=== PATIENT | female | born 1980 ===

== ENCOUNTER 2017-11-14 09:26 | Inpatient (IN) | payer BC ==
[2017-11-14] MEDS: DEXTROSE 5%-LACTATED RINGERS 1,000 ML IV SCH (11:15)
[2017-11-14] MEDS ORDERED: OXYTOCIN 20 UNITS in 0.9% NS 20 UNIT/1,000 ML INFUS.BAG IV ONE ×2 (11:34→12:45)
[2017-11-14] MEDS: SODIUM CHLORIDE 1,000 ML with OXYTOCIN 20 UNIT IV SCH (11:35)
[2017-11-14 12:14] VITALS: BMI 28.9
[2017-11-14] MEDS ORDERED: BISACODYL 10 MG SUPP.RECT RC PRN (12:34)
[2017-11-14] MEDS ORDERED: BENZOCAINE 20% 57 GM BOTTLE TP PRN (12:34)
[2017-11-14] MEDS ORDERED: BENZOCAINE 28 GM HEMORRHOIDAL OINTMENT TP PRN (12:34)
[2017-11-14] MEDS ORDERED: WITCH HAZEL 50% (TUCKS) 40 PAD/JAR PAD TP PRN (12:34)
[2017-11-14] MEDS ORDERED: METHYLERGONOVINE MALEATE 0.2 MG/1 ML AMP IM PRN (12:34)
[2017-11-14] MEDS ORDERED: oxyCODONE HCL 5 MG TABLET PO PRN (12:34)
--- NOTE | 2017-11-14 12:34 | HP ---
Past Medical History - Admission History of Present Illness: 37 yo @ complicated by: 1. 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 GBS positive urine 04/2017 denies penicillin allergies 3. MRSA 2011 Patient presents with chief complaint of contractions. She reports movement, denies leakage of fluid or vaginal bleeding. Limitations to Obtaining History: No Limitations - Past Medical History Cardiovascular: No: HTN Pulmonary: No: Asthma ...: 12 ...Para: 1 ...Term: 1 ...: 0 ...Spon : 1 ...Induced : 9 ...Multiple Gestation: 0 ...LMP: 02/06/17 ... Weeks Gestation by Dates: 40.3 ...EDC by Dates: 11/11/17 Heme/Onc: No: Anemia - Past Surgical History Past Surgical History: No: None Hx Myomectomy: No Hx Transabdominal Cerclage: No - Smoking History Smoking history: Never smoked Have you smoked in the past 12 months: No - Alcohol/Substance Use Hx Alcohol Use: No Family Disease History - Family Disease History Family History: Denies Review of Systems - Review of Systems Constitutional: reports: No Symptoms Cardiovascular: reports: No Symptoms Respiratory: reports: No Symptoms Gastrointestinal: reports: No Symptoms Genitourinary: reports: No Symptoms Neurological: reports: No Symptoms Endocrine: reports: No Symptoms Hematology/Lymphatic: reports: No Symptoms Psychiatric: reports: No Symptoms Physical Exam - Maternity Vital Signs: Vital Signs Temperature 98.1 F 11/14/17 11:15 Pulse Rate 77 11/14/17 11:15 Respiratory Rate 18 11/14/17 11:15 Blood Pressure 124/92 11/14/17 11:15 O2 Sat by Pulse Oximetry (%) Constitutional: Yes: Well Nourished, No Distress, Calm Cardiovascular: Yes: Regular Rate and Rhythm Lungs: Clear to auscultation - Abdominal Exam/OB Fundal Height: 40 Number of Fetuses: Single Presentation: Vertex Category: I Accelerations: Non-Uniform Decelerations: None - Vaginal Exam/OB Vaginal Bleediing: No - Physical Exam Psychiatric: Yes: Alert, Oriented - Labs Lab Results: PNL - B positive, antibody negative, RPR NR; HBS Ag negative; HCV negative; HIV negative x 2; GCT WNL; Hg Noemi WNL; Parvo Non immune; Rubella Immune, Varicella Immune; GBS positive on Urine Cx Hemorrhage Risk Assessment - Risk Factors Medium Risk Factors: Yes: None High Risk Factors: Yes: None Risk Score: 1 Risk Level: Medium Risk Assessment/Plan 37 yo in active labor 1. Consents reviewed and signed 2. Routine labs collected and sent 3. GBS positive - unable to give antibiotics prior to labor 4. category I FHT
--- NOTE | 2017-11-14 12:38 | PN ---
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 Head delivered spontaneously nuchal cord and shoulders and body delivered through without difficulty. Infant with spontaneous cry and placed on mother's abdomen. Nose and mouth was bulb suctioned. Cord was clamped and cut. Perineum and vagina examined, no lacerations noted. Placenta was delivered spontaneously and intact. 20 units of pitocin in 1 L IVF was given. All counts correct x 2. Mother and stable in LDR. EBL 300cc.
[2017-11-14] MEDS: ACETAMINOPHEN 325 MG TABLET (FP) PO PRN ×3 (12:39→23:49)
[2017-11-14] MEDS: IBUPROFEN 600 MG TABLET (FP) PO PRN ×3 (12:40→23:46)
[2017-11-14] MEDS ORDERED: TUBERCULIN PPD 5 TU/0.1ML SYRINGE (IN PATIENT USE ONLY) ID ONE (14:30)
[2017-11-14] MEDS: FERROUS SO4 325 MG TABLET (FP) PO SCH (18:27)
[2017-11-15 09:05] LABS: BASO % 0.6 % (0-2.0); EOS % 0.8 % (0-4.5); HEMATOCRIT 34.6 % (32.4-45.2); HEMOGLOBIN 11.9 GM/dL (10.7-15.3); LYMPH % 16.3 % (8-40); MCH 31.5 pg (25.7-33.7); MCHC 34.4 g/dl (32.0-36.0); MEAN CELL VOLUME 91.4 fl (80-96); MEAN PLT VOLUME 9.1 fl (7.5-11.1); MONO % 7.4 % (3.8-10.2); NEUT % 74.9 % (42.8-82.8); PLATELET COUNT 157 K/MM3 (134-434); RBC 3.78 M/mm3 (3.60-5.2); RDW 13.8 % (11.6-15.6); WHITE BLOOD COUNT 9.9 K/mm3 (4.0-10.0)
--- NOTE | 2017-11-15 09:41 | PN ---
Post Progress Note - Subjective Subjective: Patient without acute complaints. Reports tolerating oral intake without nausea or vomiting. Ambulating without dizziness. Denies fevers or chills. Pain well controlled with oral pain medication. without difficulty. Passing flatus. Post Day: 1 Type of Delivery: Vital Signs: Vital Signs Temperature 97.8 F 11/15/17 09:17 Pulse Rate 84 11/15/17 09:17 Respiratory Rate 17 11/15/17 09:17 Blood Pressure 110/62 11/15/17 09:17 O2 Sat by Pulse Oximetry (%) 100 11/14/17 12:40 Breast Exam: Yes: Soft Uterus: Yes: Fundus Firm Abdomen/GI: Yes: Abdomen soft, Passing flatus, Tolerating PO. No: Abdominal Distention, Tender Lochia: Yes: Serosa Lochia, amount: Small Extremities: Yes: Calves non-tender Perineum: Yes: Intact Activity: Ambulating - Labs Labs: CBC WBC 9.9 K/mm3 (4.0-10.0) 11/15/17 06:00 RBC 3.78 M/mm3 (3.60-5.2) 11/15/17 06:00 Hgb 11.9 GM/dL (10.7-15.3) 11/15/17 06:00 Hct 34.6 % (32.4-45.2) 11/15/17 06:00 MCV 91.4 fl (80-96) 11/15/17 06:00 MCH 31.5 pg (25.7-33.7) 11/15/17 06:00 MCHC 34.4 g/dl (32.0-36.0) 11/15/17 06:00 RDW 13.8 % (11.6-15.6) 11/15/17 06:00 Plt Count 157 K/MM3 (134-434) 11/15/17 06:00 MPV 9.1 fl (7.5-11.1) 11/15/17 06:00 Absolute Neuts (auto) 7.4 # 11/15/17 06:00 Neutrophils % 74.9 % (42.8-82.8) 11/15/17 06:00 Lymphocytes % 16.3 % (8-40) 11/15/17 06:00 Monocytes % 7.4 % (3.8-10.2) 11/15/17 06:00 Eosinophils % 0.8 % (0-4.5) 11/15/17 06:00 Basophils % 0.6 % (0-2.0) 11/15/17 06:00 Nucleated RBC % 0 % (0-0) 11/15/17 06:00 Assessment/Plan 37 yo PPD # 1 s/p , afebrile, vital signs stable, doing we 1. Continue routine care. 2. AM CBC without anemia. 3. Rh positive status, no rhogam indicated. 4. Encourage ambulation 5. Continue oral pain medication 6. Anticipate discharge home day #2
--- NOTE | 2017-11-15 09:55 | DS ---
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 Vital Signs: Vital Signs Temperature 97.8 F 11/15/17 09:17 Pulse Rate 84 11/15/17 09:17 Respiratory Rate 17 11/15/17 09:17 Blood Pressure 110/62 11/15/17 09:17 O2 Sat by Pulse Oximetry (%) 100 11/14/17 12:40 Labs: CBC, BMP 11/15/17 06:00 Delivery - Delivery Vaginal Delivery: No Problems Type of Anesthesia: None Episiotomy/Laceration: None EBL (cc): 300 Delivery, Single - Stages of Labor Date 1st Stage Initiatied: 11/14/17 Time 1st Stage Initiated: 07:20 Date 2nd Stage Initiated: 11/14/17 Time 2nd Stage Initiated: 11:15 Date of Delivery: 11/14/17 Time of Delivery: 11:32 Time Placenta Delivered: 11:35 Placenta: Yes: Expressed - Condition of Inspector Casing/Plant Sciences Professor Present: No Gender: Female Weight: 6 lb 13 oz Position: Left, OA Total Hours ROM (Hrs/Mins): 2min - 1 Minute Total Score: 9 5 Minutes Total Score: 9 - [place] Feeding Plan Initial Plan: Elected not to breastfeed exclusively throughout hospitalization Discharge Summary Reason For Visit: LABOR Current Active Problems Vaginal delivery (Acute) Procedures: Principal: vaginal delivery Hospital Course: Patient was admitted in active labor, progressed to deliver via a viable female . PPD # 1 patient ambulated, voiding, passing gas, tolerating oral intake and with adequate pain control. Noted to have mild asymptomatic anemia She fulfilled all criteria for discharge PPD #2 Condition: Good - Instructions Diet, Activity, Other Instructions: Physical activity Resume your normal everyday activity as tolerated no heavy lifting or exercise until seen by your surgeon. You may walk unlimited killian of and climb stairs. You may resume driving the car when you feel safe and comfortable behind the wheel. No sexual activity as instructed. Diet There are no dietary restrictions. Eat healthy, high-fiber foods. Drink 6 to 8 glasses of liquid each day. This will assist in keeping your bowels are regular. Pain management You may take Tylenol or acetaminophen or Ibuprofen (for example, Motrin, Advil etc.) from my pain prescription medication is ordered should be taken as prescribed for moderate to severe pain. Call MD for any of the following: Severe pain not relieved by medication Fever of 101 or higher Excessive bleeding or drainage on dressing Inability to urinate Referrals: Marcie Veras MD [Staff Physician] - Disposition: HOME - Home Medications Comprehensive Discharge Medication List: Ambulatory Orders One Tablet 1 tablet PO DAILY 11/14/17 Valtrex 1 tab PO DAILY 11/14/17
[2017-11-15] MEDS: PRENATAL VITAMINS W/ FOLIC ACID TABLET (FP) PO SCH (10:18)
[2017-11-15] MEDS: FERROUS SO4 325 MG TABLET (FP) PO SCH ×3 (10:19→17:23)
[2017-11-15] MEDS: DEXTROSE 5%-LACTATED RINGERS 1,000 ML IV SCH (14:20)
[2017-11-15] MEDS: SODIUM CHLORIDE 1,000 ML with OXYTOCIN 20 UNIT IV SCH (14:20)
[2017-11-15] MEDS: IBUPROFEN 600 MG TABLET (FP) PO PRN (20:53)
[2017-11-15] MEDS: ACETAMINOPHEN 325 MG TABLET (FP) PO PRN (20:53)
[2017-11-15 21:12] LABS: INR 1.01 (0.82-1.09); PROTHROMBIN TIME (PATIENT) 11.4 SEC (9.7-13.0)
[2017-11-15 21:15] LABS: ACTIVATED PTT 27.8 SECONDS (26.9-34.4)
[2017-11-15 21:18] LABS: ANION GAP 8 (8-16); BLOOD UREA NITROGEN 10 mg/dL (7-18); CALCIUM 8.5 mg/dL (8.5-10.1); CHLORIDE 107 mmol/L (98-107); CO2 25 mmol/L (21-32); CREATININE 0.9 mg/dL (0.55-1.02); GLUCOSE,RANDOM 87 mg/dL (74-106); POTASSIUM 4.5 mmol/L (3.5-5.1); SODIUM 140 mmol/L (136-145)
[2017-11-15] MEDS ORDERED: SENNOSIDES/DOCUSATE COMBO (SENNA PLUS) TABLET (UD) PO PRN (22:00)
--- NOTE | 2017-11-16 07:05 | PN ---
Progress Note (short form) - Note Progress Note: ppd 2 doing well, no c/o CBC, BMP 11/15/17 06:00 11/15/17 20:20 Last Vital Signs Temp Pulse Resp BP Pulse Ox 98.5 F 63 18 116/74 100 11/15/17 21:00 11/15/17 21:00 11/15/17 21:00 11/15/17 21:00 11/14/17 12:40 abdomen soft, non tender, uterus firm lochia mild no calf tenderness plan d/c home, rto 4 weeks
[2017-11-16] MEDS: PRENATAL VITAMINS W/ FOLIC ACID TABLET (FP) PO SCH (09:16)
[2017-11-16] MEDS: FERROUS SO4 325 MG TABLET (FP) PO SCH ×2 (09:16→12:15)
[2017-11-16] MEDS: ACETAMINOPHEN 325 MG TABLET (FP) PO PRN (12:12)
[2017-11-16] MEDS: IBUPROFEN 600 MG TABLET (FP) PO PRN (12:13)
[2017-11-16 12:40] VITALS: BP 120/78; PULSE 64; TEMP 99.2
== END 2017-11-16 12:20 | disposition home or self-care (01) | DRG 774 ==
LOC: JDEL 09:26 → JLDR 11:15 → J3W 13:33
PROVIDERS: ADMIT Obstetrics & Gynecology; ATTEND Obstetrics & Gynecology
PROC: 10E0XZZ Delivery of Products of Conception, External Approach (ICD-10-PCS; principal; 2017-11-14)
DX: O48.0 Post-term pregnancy (principal); O98.32 Other infections with a predominantly sexual mode of transmission complicating childbirth; O36.0930 Maternal care for other rhesus isoimmunization, third trimester, not applicable or unspecified; O99.824 Streptococcus B carrier state complicating childbirth; O69.81X0 Labor and delivery complicated by cord around neck, without compression, not applicable or unspecified; A60.09 Herpesviral infection of other urogenital tract; Z3A.40 40 weeks gestation of pregnancy; Z37.0 Single live birth
CPT/HCPCS: 36415; 59025; 59409; 80048; 85025; 85610; 85730; 86593; 86850; 86900; 86901; 87081; J7030